=== PATIENT | male | born 1960 | race Two or more races ===

== ENCOUNTER 2019-06-20 14:04 | Emergency (ER) | payer OTHER ==
[~2019-06-20] VITALS: Ht 175.3 cm; Wt 72.6 kg
[2019-06-20] MEDS ORDERED: CLARITIN10 MG PO (15:15)
[2019-06-20] MEDS ORDERED: ZESTRIL10 M1 PO (15:15)
[2019-06-20] MEDS ORDERED: SINGULAIR10 MG PO (15:15)
== END 2019-06-20 18:23 | disposition home or self-care (01) ==
LOC: ER 14:04
DX: R06.02 Shortness of breath (principal); F06.4 Anxiety disorder due to known physiological condition

== ENCOUNTER 2024-11-15 12:29 | Inpatient (IN) | payer OTHER ==
[~2024-11-15] VITALS: Ht 175.3 cm; Wt 68.0 kg
[~2024-11-15 12:29] MED LIST: CLARITIN10 MG PO; SINGULAIR10 MG PO; ZESTRIL10 M1 PO
--- NOTE | 2024-11-15 12:49 | NUR ---
SE RECIBE MASCULINO ALERTA Y ORIENTADO X3 EN AMBULANCIA POR DIFICULTAD RESPIRATORIA. SE OBSERVA PACIENTE CON RESPIRACIONES ABDOMINALES. PTE DEPENDIENTE DE OXIGENO. SE MIDEN S/V, SE REALIZA EKG Y SE PRESENTA A DARYParvin SARGENT QUIEN REFIERE UBICAR A PACIENTE EN SECC K CONECTADO A MONITOR CARDIACO Y OXIMETRIA DE PULSO.
[2024-11-15] MEDS ORDERED: 0.9 % SODIUM CHLORIDE 1,000 ML IV SCH (13:00)
[2024-11-15] MEDS ORDERED: LABETALOL HCL 200 MG/40 ML VIAL IV ONE (13:00)
[2024-11-15] MEDS ORDERED: CEFTRIAXONE SODIUM 2,000 MG VIAL IV ONE (13:00)
[2024-11-15] MEDS ORDERED: FUROsemide 20 MG/2 ML VIAL IV ONE (13:00)
[2024-11-15] MEDS ORDERED: FAMOtidine 10 MG/ML (4ML VIAL) IV ONE (13:00)
[2024-11-15] MEDS ORDERED: LEVALBUTEROL HCL 1.25 MG/3 ML SOLUTION IH SCH (13:30)
[2024-11-15] MEDS ORDERED: FUROsemide 20 MG/2 ML VIAL ONE (13:33)
[2024-11-15] MEDS ORDERED: METHYLPREDNISOLONE SOD SUCC 40 MG VIAL ONE (13:34)
[2024-11-15] MEDS ORDERED: LABETALOL HCL 100 MG/20 ML ML ONE (13:34)
[2024-11-15] MEDS ORDERED: CEFTRIAXONE SODIUM 2,000 MG VIAL ONE (13:35)
[2024-11-15] MEDS ORDERED: FAMOTIDINE/PF 20 MG/2 ML VIAL ONE (13:35)
[2024-11-15] MEDS ORDERED: IPRATROPIUM BROMIDE 0.5 MG/2.5 ML AMPUL.NEB IH SCH ×2 (13:45→18:32)
[2024-11-15] MEDS ORDERED: METHYLPREDNISOLONE SOD SUCC 40 MG VIAL IV ONE (13:45)
[2024-11-15] MEDS ORDERED: ACETAMINOPHEN 325 MG TABLET PO ONE (13:45)
[2024-11-15] MEDS ORDERED: IPRATROPIUM BROMIDE 0.5 MG/2.5 ML AMPUL.NEB IH ONE ×2 (13:48→21:11)
[2024-11-15] MEDS ORDERED: LEVALBUTEROL HCL 1.25 MG/3 ML SOLUTION IH ONE (13:48)
[2024-11-15 13:49] LABS: HEMATOCRIT 34.4 % (39.0-48.0); HEMOGLOBIN 10.6 g/dL (13-16.00); MEAN CELL VOLUME 77.3 fL (80.0-100.00); MEAN CORPUSCULAR HEMOGLOBIN 23.9 pg (27.00-32.0); MEAN CORPUSCULAR HGB CONC 30.9 g/dl (32.0-36.0); PLATELET COUNT 223 K/uL (150-450); RED BLOOD COUNT 4.45 M/uL (4.00-6.00); RED CELL DISTRIBUTION WIDTH 18.7 % (11.5-14.5)
[2024-11-15 13:53] LABS: ERYTHROCYTE SEDIMENTATION RATE 77 mm/hr
[2024-11-15 14:03] LABS: ABG PH 7.312 (7.35-7.45)
[2024-11-15 14:04] LABS: ABG PO2 70.7 mmHg (80-100); ABG pCO2 70.5 mmHg (35-45); BASE EXCESS 5.9 mmol/l; BICARBONATE 34.8 mmol/l (23-25); SaO2 92.5 %; allen test SATISFACTORY; o2 32 %; puncture site RADIAL LEFT
[2024-11-15 14:09] LABS: D DIMER 0.65 MG/L
--- NOTE | 2024-11-15 14:11 | NUR ---
SE COLOCA A PACIENTE EN CAMA #2 DE AREA DE CRITICO, SE CONECTA A PACIENTE EN MONITOR CARDIAOC Y OXIMETRAI DE PULSO. SE REALIZA CANALIZACION BAJO MEDIDAS ASEPTICAS Y SE AMDINISTRAN MEDICAMENTOS NEIDA ORDEN MEDICA. SE INSERTA DO CATETER BAJO MEDIDAS ESTERILES. SE ADMINISTRAN TERAPIAS RESPIRATORIAS.
[2024-11-15 14:29] LABS: ALKALINE PHOSPHATASE 62 U/L (50-136); ALT/SGPT 36 U/L (12-78); ANION GAP 8 (10.0-20.0); AST/SGOT 21 U/L (15-37); BILIRUBIN TOTAL 0.25 mg/dL (0.3-1.2); BILIRUBIN,CONJUGATED < 0.10 mg/dL (0.0-0.2); BILIRUBIN,UNCONJUGATED 0.15 mg/dL (0.0-0.6); BLOOD UREA NITROGEN 28 mg/dL (7-18); BUN CREA RATIO 18 (7.0-25.0); CALCIUM 9.3 mg/dL (8.5-10.1); CARBON DIOXIDE 35 mEq/L (21-32); CHLORIDE 102 mmol/L (98-107); CREATININE SERUM 1.52 mg/dL (0.70-1.30); GFR 46.55; GLOBULINA 3.7 G/DL (2.4-3.5); GLUCOSE FASTING 132 mg/dL (65-100); OSMOLALITY SERUM 287 MOSM/KG (275-295); SODIUM 140 mmol/L (136-145); TOTAL PROTEIN 6.7 gm/dL (6.4-8.2)
[2024-11-15 14:41] LABS: C-REACTIVE PROTEIN 0.49 MG/DL (0.00-0.29)
[2024-11-15] MEDS ORDERED: ASPIRIN 325 MG TABLET PO ONE (15:00)
[2024-11-15 15:25] LABS: INR 0.95; PROTHROMBIN TIME 10.4 SECONDS (9.0-11.5)
[2024-11-15 15:27] LABS: URINE APPEARANCE Clear; URINE BILIRRUBIN Negative (NEGATIVE); URINE BLOOD Negative; URINE COLOR Yellow; URINE GLUCOSE Negative (NEGATIVE); URINE KETONE Negative (NEGATIVE); URINE LEUKOCYTE Negative; URINE NITRATE Negative; URINE PROTEIN 30 (NEGATIVE); URINE UROBILINOGEN 0.2 E.U./dl
[2024-11-15 15:30] LABS: URINE BACTERIA 17.1 uL (0.0-1933); URINE RBC 6.3 uL (0.0-20.8); URINE WBC 4.7 uL (0.0-23.2)
[2024-11-15 15:39] LABS: URINE EPITHELIAL CELLS 0.3 uL (0.0-38.8)
--- NOTE | 2024-11-15 15:45 | NUR ---
SE RECIBE PACIENTE DE TURNO ANTERIOR QUE SE ENCUENTRA UBICADO EN CAMA #3, AREA DE CRITICO. PACIENTE ALERTA Y ORIENTADO X3. SE OBSERVA CANULA NASAL A 3L. PACIENTE CONECTADO A MONITOR CARDIACO Y OXIMETRIA DE PULSO CONTINUA. SE OBSERVAN DOS CANALIZACIONES EN BRAZO DERECHO E GIO QUE SE ENCUENTRAN PATENTES, LIBRES DE EDEMA Y PROCESOS INFECCIOSOS. SE ENCUENTRA BAJANDO UN 0.9NSS A 40ML/HR. SE OBSERVA SONDA URINARIA PATENTE, BAJANDO A GRAVEDAD CON EGRESO URINARIO COLOR AMARILLO WILDA. SE MANTIENE EN OBSERVACION POR CAMBIOS SIGNIFICATIVOS EN MACARIO CONDICION. PENDIENTE CONSULTAS.
[2024-11-15] MEDS ORDERED: ENOXAPARIN SODIUM 60 MG/0.6 ML SYRINGE SUBCUTANEO SCH (18:27)
[2024-11-15] MEDS ORDERED: TICAGRELOR 90 MG TABLET PO ONE (18:30)
[2024-11-15] MEDS ORDERED: ACETAMINOPHEN 500 MG GEL..CAP PO PRN (18:30)
[2024-11-15] MEDS ORDERED: NITROGLYCERIN IN 5 % DEXTROSE 250 ML IV SCH (18:45)
[2024-11-15] MEDS ORDERED: NITROGLYCERIN IN 5 % DEXTROSE 50 MG/250 ML BOTTLE IV ONE (18:48)
[2024-11-15] MEDS ORDERED: ENOXAPARIN SODIUM 60 MG/0.6 ML SYRINGE SUBCUTANEO ONE (19:39)
[2024-11-15 20:33] VITALS: BP 131/74; O2SAT 94
[2024-11-15 23:19] VITALS: BP 129/79; O2SAT 97
[2024-11-16] VITALS (18 sets, daily range): BP systolic 101–152; BP diastolic 73–106; O2SAT 96–100
[2024-11-16] MEDS ORDERED: IPRATROPIUM BROMIDE 0.5 MG/2.5 ML AMPUL.NEB IH ONE (00:18)
[2024-11-16] MEDS ORDERED: TICAGRELOR 90 MG TABLET PO SCH (05:00)
[2024-11-16] MEDS ORDERED: TICAGRELOR 90 MG TABLET PO ONE (05:18)
[2024-11-16 08:06] LABS: MAGNESIUM 1.5 mg/dL (1.8-2.4); TSH 0.965 uIU/mL (0.358-3.74)
[2024-11-16] MEDS ORDERED: ENOXAPARIN SODIUM 60 MG/0.6 ML SYRINGE SUBCUTANEO ONE (08:42)
[2024-11-16] MEDS ORDERED: FUROsemide 20 MG/2 ML VIAL ONE (08:42)
[2024-11-16] MEDS ORDERED: FAMOTIDINE/PF 20 MG/2 ML VIAL ONE (08:43)
[2024-11-16] MEDS ORDERED: LORATADINE 10 MG TABLET PO SCH (09:00)
[2024-11-16] MEDS ORDERED: FUROsemide 20 MG/2 ML VIAL IV SCH (09:00)
[2024-11-16] MEDS ORDERED: ASPIRIN 81 MG TAB.CHEW PO SCH (09:00)
[2024-11-16] MEDS ORDERED: FAMOTIDINE/PF 20 MG in 0.9 % SODIUM CHLORIDE 8 ML IV PUSH SCH (09:00)
[2024-11-16] MEDS ORDERED: NITROGLYCERIN IN 5 % DEXTROSE 250 ML IV SCH (09:15)
[2024-11-16] MEDS ORDERED: ATORVASTATIN CALCIUM 40 MG TABLET PO SCH (10:03)
[2024-11-17] VITALS (7 sets, daily range): BP systolic 114–129; BP diastolic 70–80; O2SAT 90–99
[2024-11-17 08:44] LABS: ALBUMIN 2.8 gm/dL (3.4-5.0); BILIRUBIN TOTAL 0.31 mg/dL (0.3-1.2); CALCIUM 9.2 mg/dL (8.5-10.1); CREATININE SERUM 1.76 mg/dL (0.70-1.30); GFR 39.3; GLOBULINA 3.7 G/DL (2.4-3.5); POTASSIUM 5.04 mEq/L (3.5-5.1); TOTAL PROTEIN 6.5 gm/dL (6.4-8.2)
[2024-11-17] MEDS ORDERED: IPRATROPIUM BROMIDE 0.5 MG/2.5 ML AMPUL.NEB IH SCH (18:00)
[2024-11-17] MEDS ORDERED: LEVALBUTEROL HCL 0.63 MG/3 ML SOLUTION IH SCH (21:48)
[2024-11-18] VITALS (9 sets, daily range): BP systolic 90–115; BP diastolic 56–78; O2SAT 90–99
[2024-11-18 07:38] LABS: CREATININE URINE RANDOM 32.5 MG/DL (30-125)
[2024-11-18 08:06] LABS: ALBUMIN 3.1 gm/dL (3.4-5.0); CALCIUM 9.2 mg/dL (8.5-10.1); CREATININE SERUM 2.11 mg/dL (0.70-1.30); GFR 31.88; URIC ACID 9.1 mg/dL (3.5-8.5)
[2024-11-19] VITALS (9 sets, daily range): BP systolic 95–102; BP diastolic 61–67; O2SAT 96–99
[2024-11-19 14:25] LABS: ABG PH 7.377 (7.35-7.45); ABG PO2 57.7 mmHg (80-100); ABG pCO2 53.1 mmHg (35-45)
[2024-11-19 14:26] LABS: BICARBONATE 30.5 mmol/l (23-25); SaO2 89.3 %; Tco2 32.2 mmol/l
[2024-11-19 14:27] LABS: allen test SATISFACTORY; o2 21 %; puncture site RADIAL LEFT
[2024-11-20] VITALS (7 sets, daily range): BP systolic 90–150; BP diastolic 56–86; O2SAT 90–100
[2024-11-20] MEDS ORDERED: FAMOTIDINE/PF 20 MG/2 ML VIAL ONE (08:38)
[2024-11-20 09:29] LABS: HEMATOCRIT 29.5 % (39.0-48.0); MEAN CELL VOLUME 75.8 fL (80.0-100.00); MEAN CORPUSCULAR HGB CONC 31.6 g/dl (32.0-36.0); PLATELET COUNT 305 K/uL (150-450); RED BLOOD COUNT 3.89 M/uL (4.00-6.00); RED CELL DISTRIBUTION WIDTH 18.5 % (11.5-14.5)
[2024-11-20 09:38] LABS: HEMOGLOBIN 9.3 g/dL (13-16.00); MEAN CORPUSCULAR HEMOGLOBIN 23.9 pg (27.00-32.0)
[2024-11-20 09:49] LABS: BILIRUBIN TOTAL 0.26 mg/dL (0.3-1.2); CALCIUM 8.6 mg/dL (8.5-10.1); CREATININE SERUM 2.34 mg/dL (0.70-1.30); GFR 28.29; GLOBULINA 3.8 G/DL (2.4-3.5); POTASSIUM 4.83 mEq/L (3.5-5.1); TOTAL PROTEIN 6.8 gm/dL (6.4-8.2)
[2024-11-20] MEDS ORDERED: 0.9 % SODIUM CHLORIDE 1,000 ML IV SCH (13:30)
[2024-11-21] VITALS (9 sets, daily range): BP systolic 115–134; BP diastolic 50–75; O2SAT 96–100
[2024-11-21 06:37] LABS: CALCIUM 8.6 mg/dL (8.5-10.1); CREATININE SERUM 2.23 mg/dL (0.70-1.30); GFR 29.91; POTASSIUM 4.44 mEq/L (3.5-5.1)
[2024-11-21] MEDS ORDERED: FAMOTIDINE/PF 20 MG/2 ML VIAL ONE (08:08)
[2024-11-21] MEDS ORDERED: ENOXAPARIN SODIUM 30 MG/0.3 ML SYRINGE SUBCUTANEO SCH (09:00)
[2024-11-21 12:38] LABS: a:g ratio 0.9 (0.7-1.7); alpha 1 g 0.3 g/dL (0.0-0.4); alpha 2 0.8 g/dL (0.4-1.0); gamma g 1.3 g/dL (0.4-1.8); globulin t 3.5 g/dL (2.2-3.9); m spike Not Observed g/dL (Not Observed); prot total 6.5 g/dL (6.0-8.5)
[2024-11-22] VITALS (8 sets, daily range): BP systolic 114–125; BP diastolic 64–74; O2SAT 97–100
[2024-11-22 06:04] LABS: CALCIUM 8.3 mg/dL (8.5-10.1); CREATININE SERUM 2.02 mg/dL (0.70-1.30); GFR 33.53; POTASSIUM 4.57 mEq/L (3.5-5.1)
[2024-11-22] MEDS ORDERED: FAMOtidine 20 MG TABLET PO SCH (09:00)
== END 2024-11-22 17:52 | disposition home or self-care (01) | DRG 280 ==
LOC: ER 12:29 → MEDJ 20:06 → ICU-2 20:06 → SEC-K 11-16 14:24 → MEDJ 11-16 15:29
PROVIDERS: General Practice; Internal Medicine Nephrology; ADMIT Internal Medicine; ATTEND Internal Medicine
PROC: B24BYZZ Ultrasonography of Heart with Aorta using Other Contrast (ICD-10-PCS; principal; 2024-11-15)
PROC: BW4GZZZ Ultrasonography of Pelvic Region (ICD-10-PCS; 2024-11-18)
PROC: BT42ZZZ Ultrasonography of Left Kidney (ICD-10-PCS; 2024-11-18)
PROC: C21G1ZZ Planar Nuclear Medicine Imaging of Myocardium using Technetium 99m (Tc-99m) (ICD-10-PCS; 2024-11-18)
DX: I21.4 Non-ST elevation (NSTEMI) myocardial infarction (principal); J96.92 Respiratory failure, unspecified with hypercapnia; I50.30 Unspecified diastolic (congestive) heart failure; J44.1 Chronic obstructive pulmonary disease with (acute) exacerbation; N17.9 Acute kidney failure, unspecified; I24.9 Acute ischemic heart disease, unspecified; I50.9 Heart failure, unspecified